=== PATIENT | female | born 1940 | race Hispanic/Latino ===

== ENCOUNTER → 2020-08-27 | Outpatient (CLI) | payer OTHER ==
[~2020-08-27] VITALS: Ht 160 cm; Wt 78.0 kg
[~2020-08-27] MED LIST: REGADENOSON 0.4 MG/5 ML PF SYG IVP SCH
== END | disposition home or self-care (01) ==
LOC: SHCH 08:56
PROVIDERS: ATTEND Internal Medicine Cardiovascular Disease
DX: I25.89 Other forms of chronic ischemic heart disease (principal); I25.10 Atherosclerotic heart disease of native coronary artery without angina pectoris
CPT/HCPCS: 78452; 93017; 96374; A9500 ×2; J2785

== ENCOUNTER 2021-02-28 15:52 | Observation (INO) | payer OTHER ==
[~2021-02-28] VITALS: Ht 160 cm; Wt 77.1 kg
[2021-02-28 15:53] VITALS: BP 92/41
[2021-02-28 16:51] LABS: EOSINOPHILS % (AUTO) 2.4 % (0.0-8.0); HEMATOCRIT 47.6 % (36-48); LYMPHOCYTES % (AUTO) 32.9 % (21.0-51.0); MEAN CORPUSCULAR HGB CONC 31.9 g/dL (32.0-36.0); MEAN CORPUSCULAR VOLUME 93.9 fL (79-99); MONOCYTES % (AUTO) 9.5 % (3.0-13.0); NEUTROPHILS % (AUTO) 53.8 % (40.0-77.0); PLATELET COUNT (AUTO) 212 K/uL (130-400); RED BLOOD CELL COUNT(AUTO) 5.07 MIL/uL (4.00-5.50); RED CELL DISTRIBUTION WIDTH 14.8 % (11.0-15.5); WHITE BLOOD COUNT (AUTO) 4.9 K/uL (4.8-10.8)
[2021-02-28 17:04] LABS: INR 1.58 (0.85-1.15); PROTHROMBIN TIME 16.5 SEC (9.6-11.6)
[2021-02-28 17:05] LABS: PARTIAL THROMBOPLASTIN TIME 34.8 SEC (26.3-35.5)
[2021-02-28 17:20] LABS: CREATININE 0.8 mg/dL (0.5-1.5); POTASSIUM 4.7 mmol/L (3.5-5.1)
[2021-02-28 17:30] LABS: ALBUMIN 3.5 g/dL (3.5-5.0); BILIRUBIN,TOTAL 0.8 mg/dL (0.2-1.0); TOTAL PROTEIN, SERUM 6.6 g/dL (6.0-8.3)
[2021-02-28 17:33] LABS: B-TYPE NATRIURETIC PEPTIDE 125 pg/mL (0-100)
[2021-02-28 18:22] VITALS: BP 126/68
[2021-02-28] MEDS ORDERED: NITROGLYCERIN 0.4 MG SL TAB SL PRN (19:00)
[2021-02-28] MEDS ORDERED: ONDANSETRON 4MG INJ IV PRN (19:00)
[2021-02-28] MEDS ORDERED: ACETAMINOPHEN 325 MG TAB PO PRN ×2 (19:00)
[2021-02-28 19:26] LABS: CHOLESTEROL 185 mg/dL (<200); HDL CHOLESTEROL 58 mg/dL (35-85); HEMOGLOBIN A1C 5.5 % (4.0-6.0); LDL DIRECT 101 mg/dL (0-99); TRIGLYCERIDES 92 mg/dL (30-200)
[2021-02-28 19:48] VITALS: BP 144/70
[2021-02-28] MEDS ORDERED: FUROSEMIDE 40MG VIAL IV SCH (20:30)
[2021-02-28] MEDS ORDERED: LABETALOL 20MG VIAL IV PRN (20:30)
[2021-02-28] MEDS: FAMOTIDINE 20MG TAB PO SCH (21:50)
[2021-02-28] MEDS: METOPROLOL TARTRATE 25 MG TAB PO SCH (21:50)
[2021-02-28] MEDS: ATORVASTATIN 40 MG TABLET PO SCH (21:50)
[2021-02-28] MEDS: RANOLAZINE 500 MG TAB.SR.12H PO SCH (21:50)
[2021-02-28 22:40] LABS: APPEARANCE,URINE Clear (CLEAR); BILIRUBIN,URINE Negative (NEGATIVE); COLOR,URINE Yellow (YELLOW); GLUCOSE, URINE (UA) Negative (NEGATIVE); KETONES,URINE Negative (NEGATIVE); LEUKOCYTE ESTERASE ,URINE Trace (NEGATIVE); NITRATE,URINE Negative (NEGATIVE); OCCULT BLOOD,URINE Trace (NEGATIVE); PROTEIN,URINE Negative (NEGATIVE)
[2021-02-28 22:49] LABS: BACTERIA,URINE Rare /HPF (None Seen); WBC,URINE 0-1 /HPF (0-1)
[2021-02-28] MEDS: BUDESONIDE 0.5 MG/2 ML INH IH SCH (23:36)
[2021-03-01] VITALS (9 sets, daily range): BP systolic 95–117; BP diastolic 48–75
[2021-03-01 06:04] LABS: MEAN CORPUSCULAR HEMOGLOBIN 29.5 pg (27.0-33.0); MEAN CORPUSCULAR HGB CONC 31.6 g/dL (32.0-36.0); MEAN CORPUSCULAR VOLUME 93.3 fL (79-99); RED BLOOD CELL COUNT(AUTO) 5.25 MIL/uL (4.00-5.50); WHITE BLOOD COUNT (AUTO) 4.9 K/uL (4.8-10.8)
[2021-03-01] MEDS: LEVOTHYROXINE 125 MCG TABLET PO SCH (06:17)
[2021-03-01 06:35] LABS: CREATININE 0.8 mg/dL (0.5-1.5); POTASSIUM 3.9 mmol/L (3.5-5.1); THYROID STIMULATING HORMONE 8.57 uIU/mL (0.36-3.74)
[2021-03-01] MEDS: ALBUTEROL 0.083% 2.5 MG/3 ML INH IH SCH ×3 (07:25→18:38)
[2021-03-01] MEDS: BUDESONIDE 0.5 MG/2 ML INH IH SCH ×2 (07:36→18:38)
[2021-03-01] MEDS: ISOSORBIDE MONO 30MG SR TAB PO SCH (09:00)
[2021-03-01] MEDS: METOPROLOL TARTRATE 25 MG TAB PO SCH ×2 (09:00→21:00)
[2021-03-01] MEDS: FAMOTIDINE 20MG TAB PO SCH (09:00)
[2021-03-01] MEDS: ASPIRIN 81MG CHEW TAB PO SCH (09:00)
[2021-03-01] MEDS: RANOLAZINE 500 MG TAB.SR.12H PO SCH ×2 (09:00→21:41)
[2021-03-01] MEDS: FUROSEMIDE 20MG VIAL IV SCH ×2 (09:29→21:00)
[2021-03-01] MEDS ORDERED: METO-408 PO (10:40)
[2021-03-01] MEDS ORDERED: WARF-67 PO (10:41)
[2021-03-01] MEDS ORDERED: LEVO125C4 PO (10:42)
[2021-03-01] MEDS ORDERED: REGADENOSON 0.4 MG/5 ML PF SYG IVP SCH (12:30)
[2021-03-01] MEDS: ATORVASTATIN 40 MG TABLET PO SCH (21:41)
[2021-03-01] MEDS: WARFARIN SODIUM 2 MG TAB PO SCH (22:02)
[2021-03-02] VITALS (8 sets, daily range): BP systolic 90–117; BP diastolic 47–68
[2021-03-02] MEDS: BUDESONIDE 0.5 MG/2 ML INH IH SCH ×2 (06:29→19:00)
[2021-03-02] MEDS: LEVOTHYROXINE 125 MCG TABLET PO SCH (06:49)
[2021-03-02 07:36] LABS: EOSINOPHILS % (AUTO) 0.6 % (0.0-8.0); HEMATOCRIT 47.5 % (36-48); LYMPHOCYTES % (AUTO) 31.8 % (21.0-51.0); MEAN CORPUSCULAR HEMOGLOBIN 29.5 pg (27.0-33.0); MEAN CORPUSCULAR HGB CONC 31.6 g/dL (32.0-36.0); MEAN CORPUSCULAR VOLUME 93.5 fL (79-99); MONOCYTES % (AUTO) 11.7 % (3.0-13.0); NEUTROPHILS % (AUTO) 54.7 % (40.0-77.0); PLATELET COUNT (AUTO) 198 K/uL (130-400); RED BLOOD CELL COUNT(AUTO) 5.08 MIL/uL (4.00-5.50); RED CELL DISTRIBUTION WIDTH 14.7 % (11.0-15.5); WHITE BLOOD COUNT (AUTO) 4.8 K/uL (4.8-10.8)
[2021-03-02 08:00] LABS: B-TYPE NATRIURETIC PEPTIDE 73 pg/mL (0-100); CREATININE 0.8 mg/dL (0.5-1.5)
[2021-03-02] MEDS: FAMOTIDINE 20MG TAB PO SCH (09:08)
[2021-03-02] MEDS: ASPIRIN 81MG CHEW TAB PO SCH (09:08)
[2021-03-02] MEDS: METOPROLOL TARTRATE 25 MG TAB PO SCH ×2 (09:08→21:00)
[2021-03-02] MEDS: FUROSEMIDE 20MG VIAL IV SCH ×2 (09:08→21:42)
[2021-03-02] MEDS: RANOLAZINE 500 MG TAB.SR.12H PO SCH ×2 (09:08→21:43)
[2021-03-02] MEDS: ISOSORBIDE MONO 30MG SR TAB PO SCH (09:08)
[2021-03-02] MEDS: WARFARIN SODIUM 2 MG TAB PO SCH (16:00)
[2021-03-02] MEDS: ALBUTEROL 0.083% 2.5 MG/3 ML INH IH SCH ×2 (19:00→19:01)
[2021-03-02] MEDS ORDERED: BISACODYL 5 MG TABLET.DR PO ONE (21:22)
[2021-03-02] MEDS: ATORVASTATIN 40 MG TABLET PO SCH (21:42)
[2021-03-03] VITALS (12 sets, daily range): BP systolic 84–139; BP diastolic 44–63
[2021-03-03 06:22] LABS: HEMATOCRIT 46.5 % (36-48); MEAN CORPUSCULAR HEMOGLOBIN 29.8 pg (27.0-33.0); RED CELL DISTRIBUTION WIDTH 14.8 % (11.0-15.5); WHITE BLOOD COUNT (AUTO) 5.7 K/uL (4.8-10.8)
[2021-03-03] MEDS: LEVOTHYROXINE 125 MCG TABLET PO SCH (06:30)
[2021-03-03 06:34] LABS: CREATININE 0.7 mg/dL (0.5-1.5); POTASSIUM 3.9 mmol/L (3.5-5.1)
[2021-03-03] MEDS: ALBUTEROL 0.083% 2.5 MG/3 ML INH IH SCH ×3 (08:00→19:00)
[2021-03-03] MEDS: FAMOTIDINE 20MG TAB PO SCH (08:41)
[2021-03-03] MEDS: ASPIRIN 81MG CHEW TAB PO SCH (08:41)
[2021-03-03] MEDS: FUROSEMIDE 20MG VIAL IV SCH (08:41)
[2021-03-03] MEDS: METOPROLOL TARTRATE 25 MG TAB PO SCH (08:41)
[2021-03-03] MEDS: RANOLAZINE 500 MG TAB.SR.12H PO SCH (08:41)
[2021-03-03] MEDS: ISOSORBIDE MONO 30MG SR TAB PO SCH (08:41)
[2021-03-03] MEDS: BUDESONIDE 0.5 MG/2 ML INH IH SCH ×2 (09:00→19:00)
[2021-03-03] MEDS ORDERED: LACTULOSE 20 GM/30 ML UDCUP PO PRN (15:00)
[2021-03-03] MEDS: WARFARIN SODIUM 2 MG TAB PO SCH (16:04)
[2021-03-03] MEDS ORDERED: FURO20TA4 PO (18:48)
== END 2021-03-03 21:55 | disposition home or self-care (01) ==
LOC: EDH 15:52 → EDHIP 15:53 → INTOOBSV 15:53 → EDHIP 03-03 21:55
PROVIDERS: ADMIT Internal Medicine Critical Care Medicine; ATTEND Internal Medicine Critical Care Medicine
DX: I11.0 Hypertensive heart disease with heart failure (principal); I50.9 Heart failure, unspecified; I48.20 Chronic atrial fibrillation, unspecified; R07.89 Other chest pain; J44.9 Chronic obstructive pulmonary disease, unspecified; E03.9 Hypothyroidism, unspecified; E66.9 Obesity, unspecified; E78.5 Hyperlipidemia, unspecified; R79.1 Abnormal coagulation profile; I24.9 Acute ischemic heart disease, unspecified; Z68.30 Body mass index [BMI] 30.0-30.9, adult; Z79.01 Long term (current) use of anticoagulants; Z79.82 Long term (current) use of aspirin; Z79.890 Hormone replacement therapy; Z79.899 Other long term (current) drug therapy; Z87.891 Personal history of nicotine dependence; Z90.49 Acquired absence of other specified parts of digestive tract; Z98.51 Tubal ligation status; Z95.810 Presence of automatic (implantable) cardiac defibrillator
CPT/HCPCS: 36415 ×4; 71045 ×3; 80048 ×3; 80053; 80061; 81001; 82550; 83036; 83735; 83880 ×3; 84443; 84484 ×4; 85025 ×2; 85027 ×2; 85378; 85610; 85730; 93005 ×2; 93306; 93356; 94640 ×10; 94664; 94760 ×2; 96374; 96376 ×3; 99285; G0378 ×71; J1940 ×6; J2785

== ENCOUNTER 2021-07-08 08:50 | Day surgery (SDC) | payer OTHER ==
[2021-07-04 13:49] LABS: BASOPHILS % (AUTO) 0.8 % (0.0-5.0); EOSINOPHILS % (AUTO) 0.6 % (0.0-8.0); HEMATOCRIT 46.4 % (36-48); LYMPHOCYTES % (AUTO) 35.8 % (21.0-51.0); MEAN CORPUSCULAR HEMOGLOBIN 29.8 pg (27.0-33.0); MEAN CORPUSCULAR HGB CONC 31.3 g/dL (32.0-36.0); MEAN CORPUSCULAR VOLUME 95.5 fL (79-99); MONOCYTES % (AUTO) 11.4 % (3.0-13.0); PLATELET COUNT (AUTO) 222 K/uL (130-400); RED BLOOD CELL COUNT(AUTO) 4.86 MIL/uL (4.00-5.50); RED CELL DISTRIBUTION WIDTH 13.8 % (11.0-15.5); WHITE BLOOD COUNT (AUTO) 5.2 K/uL (4.8-10.8)
[2021-07-04 14:01] LABS: CREATININE 0.7 mg/dL (0.5-1.5); POTASSIUM 4.6 mmol/L (3.5-5.1)
[2021-07-04 14:03] LABS: INR 2.9 (0.85-1.15); PROTHROMBIN TIME 28.7 SEC (9.6-11.6)
[2021-07-04 14:04] LABS: PARTIAL THROMBOPLASTIN TIME 43.4 SEC (26.3-35.5)
[2021-07-04 15:11] VITALS: BP 127/60
[2021-07-08] VITALS (13 sets, daily range): BP systolic 96–145; BP diastolic 51–70
[~2021-07-08] VITALS: Ht 160 cm; Wt 81.8 kg
[~2021-07-08 08:50] MED LIST changes: +0.9%NACL 1000ML 1,000 ML IV SCH; +ALBU0.63 IH; +CEFAZOLIN SODIUM 1 GM VIAL IVP SCH; +FLUT1BLS3 IH; +FURO20TA4 PO; +LEVO125C4 PO; +METO-408 PO; +MULT-1367 PO; +MV-M1TAB20 PO; +NITR0.4T50 SL; -REGADENOSON 0.4 MG/5 ML PF SYG IVP SCH; +VITAMIN C PO; +WARF-67 PO
[2021-07-08] MEDS ORDERED: MEPERIDINE-PF 25 MG/ML SYG ONE ×3 (09:29→11:04)
[2021-07-08] MEDS ORDERED: BUPIVACAINE/PF 0.25% 30ML VIAL IJ ONE (09:29)
[2021-07-08] MEDS ORDERED: MIDAZOLAM HCL 1 MG/ML 2ML VIAL ONE ×3 (09:29→11:04)
[2021-07-08] MEDS ORDERED: LIDOCAINE HCL 1% MDV 50ML VIAL ONE (09:29)
[2021-07-08 09:33] LABS: INR 1.51 (0.85-1.15); PROTHROMBIN TIME 15.9 SEC (9.6-11.6)
[2021-07-08 09:34] LABS: PARTIAL THROMBOPLASTIN TIME 33.9 SEC (26.3-35.5)
[2021-07-08] MEDS ORDERED: TRAM50TA4 PO (11:46)
[2021-07-08] MEDS ORDERED: TRAMADOL HCL 50 MG TABLET PO PRN (12:00)
[2021-07-08] MEDS ORDERED: IPRATROPIUM/ALBUTEROL SULFATE 3 ML SOLUTION IH ONE ×2 (15:08→16:20)
== END 2021-07-08 16:15 | disposition home or self-care (01) ==
LOC: DAH 08:50
PROVIDERS: ATTEND Internal Medicine Cardiovascular Disease
DX: Z45.010 Encounter for checking and testing of cardiac pacemaker pulse generator [battery] (principal); I48.21 Permanent atrial fibrillation; I11.0 Hypertensive heart disease with heart failure; I50.32 Chronic diastolic (congestive) heart failure; I44.2 Atrioventricular block, complete; E03.9 Hypothyroidism, unspecified; Z86.73 Personal history of transient ischemic attack (TIA), and cerebral infarction without residual deficits; Z79.01 Long term (current) use of anticoagulants; Z98.890 Other specified postprocedural states; Z98.51 Tubal ligation status; Z90.89 Acquired absence of other organs; Z82.49 Family history of ischemic heart disease and other diseases of the circulatory system; Z83.3 Family history of diabetes mellitus
CPT/HCPCS: 33229; 36415 ×2; 80048; 85025; 85610 ×2; 85730 ×2; 93005; 94640; A4215; A4216; A4221; A4222; A4223 ×3; A4606; A4663; C2621; J0690 ×2; J2175 ×3; J2250 ×3; J3490 ×2; J7030 ×2; 99156; 99157; C1785